=== PATIENT | male | born 1945 | race Caucasian/White ===

== ENCOUNTER 2017-07-11 09:25 | Emergency (ER) | payer MEDICAID ==
[~2017-07-11] VITALS: Ht 165.1 cm; Wt 55.0 kg
[2017-07-11 09:28] VITALS: Ht 165.1 cm; Wt 55.0 kg
[2017-07-11] MEDS ORDERED: NAPR-260 PO (10:00)
[2017-07-11] MEDS ORDERED: RANI150T9 PO (10:00)
--- NOTE | 2017-07-11 10:51 | ERD ---
ER Documentation Chief Complaint Date/Time DATE: 07/11/17 TIME: 10:46 Chief Complaint Complains of right knee pain x 3 days HPI This patient is a 72-year-old male presenting to the emergency department with complaints of right knee pain intermittently for the past year. He recently had an acute exacerbation of the pain. He did have a fall one year ago onto his right leg injuring the knee and had negative x-rays at this time. He has been taking Tylenol at home with no relief of symptoms. Pain is constant. Pain is exacerbated by movement. Alleviated with rest. The patient denies any significant swelling, he denies new injuries, falls, or other symptoms currently. ROS All systems reviewed and are negative except as per history of present illness. Medications Home Meds Active Scripts Ranitidine Hcl* (Zantac*) 150 Mg Tablet, 150 MG PO BID Y for EPIGASTRIC PAIN, # 30 TAB Prov:VENICE SHAW PA-C 07/11/17 Naproxen* (Naprosyn*) 500 Mg Tablet, 500 MG PO BID Y for PAIN AND/OR INFLAMMATION, #30 TAB Prov:VENICE SHAW PA-C 07/11/17 Allergies Allergies: Coded Allergies: No Known Allergy (Unverified , 07/11/17) PMhx/Soc Medical and Surgical Hx: pt denies Medical Hx, pt denies Surgical Hx Hx Alcohol Use: No Hx Substance Use: No Hx Tobacco Use: No Smoking Status: Never smoker Physical Exam Vitals Vital Signs Date Time Temp Pulse Resp B/P Pulse Ox O2 Delivery O2 Flow Rate FiO2 07/11/17 09:28 97.5 51 20 156/74 98 Physical Exam Const: Nontoxic, well-appearing male in no acute distress. Head: Atraumatic Eyes: Normal Conjunctiva ENT: Normal External Ears, Nose and Mouth. Skin: No petechiae or rashes Back: No midline or flank tenderness Ext: There is tenderness to palpation subjectively of the medial and lateral joint line of the right knee. There is no significant swelling or joint effusion noted. No warmth noted. 2+ pedal pulses noted in the right lower extremity. No significant difference on inspection when compared to the left knee. Range of motion is intact in the right knee. Negative anterior and posterior drawer test on the right knee. Neur: Awake and alert Psych: Normal Mood and Affect Procedures/MDM 72-year-old male presents to the emergency department with acute on chronic right knee pain. I do not feel that x-rays are indicated at this time because the patient already had them after injury to the right knee approximately 1 year ago with no acute findings. Physical examination was not concerning for joint effusion, septic joint, compartment syndrome, DVT, point tenderness, fracture, or other emergent conditions. The patient was stable for discharge home with a prescription for naproxen and ranitidine to prevent increased stomach acid production. The patient agreed with the discharge plan and diagnosis. His questions and concerns were addressed. Strict ER return precautions were discussed. Close follow-up with a primary care physician was advised. Departure Diagnosis: Primary Impression: Chronic pain of right knee Condition: Fair Patient Instructions: Knee Pain, Uncertain Cause [facility] Sadia se harper hecho un examen mdico de control que le indica que no est en alecia condicin que requiera tratamiento urgente en el Departamento de Emergencia. Un estudio ms profundo y el tratamiento de real condicin pueden esperar sin ningn riesgo hasta que usted sea atendida/o en el consultorio de real mdico o alecia cl iván. Es responsabilidad suya arreglar alecia fernando para el seguimiento del ozzie. MANEJO DE CONDICIONES NO URGENTES EN EL FUTURO 1) Si usted tiene un mdico de atencin primaria: Usted debera llamar a real mdico de atencin primaria antes de venir al departamento de emergencia. Despus de las horas de consultorio, real doctor o real asociado/a est disponible por telfono. El mdico o enfermero de dominic en el servicio telefnico puede asesorarle por aba medio para atender el problema, o ozzie contrario se puede programar alecia fernando. 2) Si usted no tiene un mdico de atencin primaria: Llame al mdico o clnica de referencia que aparece abajo simone las horas de consultorio para hacer alecia fernando para que le vean. CLINICAS: [facility] [phone] [facility] [phone] [facility] [phone] [facility] [phone] [facility] [phone] [address] [place] [phone] Additional Instructions: No mas mejor en 2-3 rahmna, regresar. Mas peor en 24 horas, regresear rapidamente. Ir a doctor primario in 5-7 rahman. Usar instrucciones cuando cheng medicamento. VENICE SHAW PA-C Jul 11, 2017 10:51
== END 2017-07-11 10:41 | disposition home or self-care (01) ==
LOC: FTE 09:25
DX: M25.561 Pain in right knee (principal)
CPT/HCPCS: 99283

== ENCOUNTER 2017-08-19 10:49 | Emergency (ER) | payer MEDICAID ==
[~2017-08-19] VITALS: Ht 165.1 cm; Wt 97.3 kg
[~2017-08-19 10:49] MED LIST: NAPR-260 PO; RANI150T9 PO
[2017-08-19 11:03] VITALS: Ht 165.1 cm; Wt 97.3 kg
[2017-08-19] MEDS ORDERED: BENAZEPRIL 20 MG TAB PO ONE (12:30)
[2017-08-19] MEDS ORDERED: TETRACAINE 0.5% 4 ML OPH BOTH EYES ONE (12:30)
[2017-08-19] MEDS ORDERED: BENA20TA65 PO (13:07)
--- NOTE | 2017-08-19 13:12 | ERD ---
ER Documentation Chief Complaint Chief Complaint blurred vision x 1 year HPI 72-year-old male presents with multiple complaints. He does complain of blurry vision for the last year. States that he does not have a primary care doctor. He states that he had a normal blood tests for diabetes 6 months ago. He gives a history of hypertension but does not currently take any medications. Any chest pain or shortness of breath. There is no additional complaint of decreased hearing is bilateral ears, left greater than right. ROS All systems reviewed and are negative except as per history of present illness. Medications Home Meds Active Scripts Benazepril Hcl* (Lotensin*) 20 Mg Tablet, 20 MG PO DAILY, #30 TAB Prov:JOAQUINA VALDIVIA MD 08/19/17 Ranitidine Hcl* (Zantac*) 150 Mg Tablet, 150 MG PO BID Y for EPIGASTRIC PAIN, # 30 TAB Prov:VENICE SHAW PA-C 07/11/17 Naproxen* (Naprosyn*) 500 Mg Tablet, 500 MG PO BID Y for PAIN AND/OR INFLAMMATION, #30 TAB Prov:VENICE SHAW PA-C 07/11/17 Allergies Allergies: Coded Allergies: No Known Allergy (Unverified , 08/19/17) PMhx/Soc Hx Alcohol Use: No Hx Substance Use: No Hx Tobacco Use: No Physical Exam Vitals Vital Signs Date Time Temp Pulse Resp B/P Pulse Ox O2 Delivery O2 Flow Rate FiO2 08/19/17 11:03 97.6 55 18 202/94 98 Physical Exam Const: [] Alert, [id number]. Head: Atraumatic Eyes: Normal Conjunctiva. Eyes are PERRLA and extraocular movements intact. Intraocular pressure is 22 and 23 bilaterally respectively. Acuity 20/50 AND 20/70 bilaterally. ENT: Normal External Ears, Nose and Mouth. Cerumen impaction in the left ear. Neck: Full range of motion..~ No meningismus. Resp: Clear to auscultation bilaterally Cardio: Regular rate and rhythm, no murmurs Abd: Soft, non tender, non distended. Normal bowel sounds Skin: No petechiae or rashes Back: No midline or flank tenderness Ext: No cyanosis, or edema Neur: Awake and alert Psych: Normal Mood and Affect Results 24 hrs Current Medications Medications (Trade) Dose Ordered Sig/Kris Route PRN Reason Start Time Stop Time Status Last Admin Dose Admin Tetracaine HCl (Tetracaine 0.5% Steri-Unit Jaelyn) 1 drop ONCE ONCE BOTH EYES 08/19/17 12:30 08/19/17 12:31 DC Benazepril HCl (Lotensin) 20 mg ONCE ONCE PO 08/19/17 12:30 08/19/17 12:31 DC Procedures/MDM EKG: Rate/Rhythm: [Normal Sinus Rhythm] rate equals 47 QRS, ST, T-waves: [No changes consistent w/ acute ischemia] Impression: [No evidence of ischemia or arrhythmia]. Impression have a sinus bradycardia otherwise no acute findings of ischemia. Ear lavage performed. TM normal after lavage. Patient has elevated blood pressure triage. Patient has no evidence of chest pain, shortness breath, findings to suggest endorgan damage or hypertensive emergency. Patient does appear to be in need of primary care. Will initiate Lotensin 20 mg a day, and ophthalmology evaluation. Patient will referred to [facility] for further evaluation and management of his hypertension and primary care. Is no evidence to suggest acute angle glaucoma, retinal detachment, retinal artery occlusion, optic neuritis, orbital cellulitis, additional emergencies. The patient was stable with no new complaints during the ER course. Clinically, there is no current evidence to suggest meningitis, sepsis, acute abdomen, pneumonia, acute coronary syndrome, pulmonary embolism, or any other emergent condition appearing to require further evaluation or hospitalization. The patient should certainly return for any new or worsening symptoms per the aftercare instructions. They should otherwise follow-up with her primary care doctor for reevaluation this week. Departure Diagnosis: Primary Impression: Hypertension Hypertension type: unspecified Qualified Code: I10 - Hypertension, unspecified type Additional Impression: Blurring of visual image Condition: Stable Patient Instructions: High Blood Pressure (Hypertension), Blurred Vision [facility] Usted se harper hecho un examen mdico de control que le indica que no est en alecia condicin que requiera tratamiento urgente en el Departamento de Emergencia. Un estudio ms profundo y el tratamiento de real condicin pueden esperar sin ningn riesgo hasta que usted sea atendida/o en el consultorio de real mdico o alecia cl iván. Es responsabilidad suya arreglar alecia fernando para el seguimiento del ozzie. MANEJO DE CONDICIONES NO URGENTES EN EL FUTURO 1) Si usted tiene un mdico de atencin primaria: Usted debera llamar a real mdico de atencin primaria antes de venir al departamento de emergencia. Despus de las horas de consultorio, real doctor o real asociado/a est disponible por telfono. El mdico o enfermero de dominic en el servicio telefnico puede asesorarle por aba medio para atender el problema, o ozzie contrario se puede programar alecia fernando. 2) Si usted no tiene un mdico de atencin primaria: Llame al mdico o clnica de referencia que aparece abajo simone las horas de consultorio para hacer alecia fernando para que le vean. CLINICAS: [place] [phone] [facility] [facility] [phone] [facility] [facility] [phone] [facility]. [place] [phone] [facility]. [place] [phone] [facility]. [phone] [facility] Hours: Mon - Fri 9:00 AM - 5:00 PM Additional Instructions: Va al real doctor/ specialista para mas evaluacon en el proximo semana. posiblemente necesita autorizado de real doctor primario para specialista. Regresa para fiebre, o mas o nueva simptomas. JOAQUINA VALDIVIA MD Aug 19, 2017 13:12
[2017-08-19 13:33] VITALS: BP 166/79; PULSE 71; RESP 18
== END 2017-08-19 13:33 | disposition home or self-care (01) ==
LOC: FTE 10:49
DX: I10 Essential (primary) hypertension (principal)
CPT/HCPCS: 93005; Z7502; Z7610